=== PATIENT | female | born 1960 | race Caucasian/White ===

== ENCOUNTER 2016-12-30 20:51 | Observation (INO) ==
[2016-12-30] MEDS ORDERED: 0.9 % Sodium Chloride 1,000 ML IVC ONE (21:54)
[2016-12-30] MEDS ORDERED: Ondansetron 4 MG/2 ML VIAL IV ONE (21:55)
[2016-12-30 22:16] LABS: Basophils % 0.2 %; Eosinophils % 0.1 %; Immature Granulocytes % 0.7 % (0-4); Lymphocytes # 0.8 K/mcL (0.6-4.6); Lymphocytes % 8.9 %; Mean Corpuscular HGB Conc 33.3 g/dL (31.6-35.5); Mean Corpuscular Hemoglobin 31.1 pg (28.0-33.3); Mean Corpuscular Volume 93.3 fL (83.0-100.0); Mean Platelet Volume 10.4 fL (9.4-12.4); Monocytes # 0.8 K/mcL (0.0-1.3); Monocytes % 8.8 %; Neutrophils # 7.1 K/mcL (1.6-8.9); Platelet Count 178 K/mcL (140-400); Red Cell Distribution Width 13.2 % (11.5-14.5); Segmented Neutrophils % 81.3 %
[2016-12-30 22:18] LABS: Bilirubin,Urine Negative (Negative); Blood,Urine Negative (Negative); Clarity,Urine Clear (Clear); Color,Urine Dark Yellow (Yellow); Glucose,Urine (UA) Normal (Normal); Ketones,Urine Negative (Negative); Leukocyte Esterase,Urine Negative (Negative); Nitrite,Urine Negative (Negative); Protein,Urine 30 mg/dL (Neg-Trace); Specific Gravity,Urine > 1.030 (1.010-1.025); Urobilinogen,Urine Normal (Normal)
[2016-12-30 22:21] LABS: Bacteria,Urine Few per hpf (None-Few); Squamous Epithelial Cell,Urine Many per lpf (None-Few)
[2016-12-30 22:30] LABS: BUN/Creatinine Ratio 14 (6-26); Blood Urea Nitrogen 11 mg/dL (7-20); Calcium 8.9 mg/dL (8.6-10.8); Carbon Dioxide 27 mEq/L (19-29); Chloride 105 mEq/L (98-109); Glucose 136 mg/dL (70-99); Osmolality,Calculated 295 (280-300); Potassium 3.4 mEq/L (3.5-4.5); Sodium 142 mEq/L (136-145); eGFR For African Americans > 60 (> 60); eGFR For Non-African Americans > 60 (> 60)
[2016-12-30 22:35] LABS: RBC,Urine 0-3 per hpf (0-3)
[2016-12-30 22:36] LABS: Hyaline Casts,Urine Few per lpf (None-Few)
--- NOTE | 2016-12-30 23:47 | Emergency Department Note ---
Disposition Clinical Impression: Bradycardia Syncope Qualifiers: Syncope type: unspecified Qualified Code(s): R55 - Syncope and collapse Chest pain Qualifiers: Chest pain type: unspecified Qualified Code(s): R07.9 - Chest pain, unspecified Disposition: Admitted As Inpatient Condition: Good Time of Disposition: 05:07 Syncope HPI - General Chief Complaint: ED General Medical Stated Complaint: "panic attack"/LOC unknown cause Time Seen by Provider: 12/30/16 21:52 Source: patient Mode of arrival: EMS Limitations: no limitations Nursing Notes Reviewed: Yes Vital Signs Reviewed: Yes - History of Present Illness HPI Narrative: 56-year-old female presents after a syncopal episode at home. Patient states that she became significantly anxious, became nauseated, had chest pain and diaphoresis, she went to the bathroom to vomit when she syncopized. Son states that the patient was unconscious for less than a minute, did not have a postictal period. She was not incontinent of stool or urine. - Related Data Home Medications Medication Instructions Recorded Confirmed Doxylamine Succinate [Sleep Aid] 25 mg PO 12/31/16 Darrel's Wort 300 mg PO BID 12/31/16 12/31/16 Allergies Allergy/AdvReac Type Severity Reaction Status Date / Time No Known Allergies Allergy Verified 12/30/16 21:05 All systems ED: reviewed and negative except as stated. Constitutional: Reports: weakness. Denies: fever, chills Cardiovascular: Reports: chest pain, palpitations, syncope Respiratory: Reports: dyspnea. Denies: cough, wheezes, hemoptysis Gastrointestinal: Reports: nausea, vomiting. Denies: abdominal pain Genitourinary: Denies: urgency, dysuria Musculoskeletal: Denies: back pain, neck pain Integumentary: Denies: rash Neurological: Denies: headache, weakness, numbness, paresthesias Past Medical History - Past Medical History Attestation: Yes The following information was validated with the patient. Source: patient Medical history: Reports: hypertension Psychiatric history: Reports: anxiety, panic disorder - Social History Smoking Status: Current every day smoker Alcohol use: Reports: none Drug use: Reports: none Physical Exam General: Alert and in no acute distress Skin: Warm, dry, intact Head: Normocephalic and atraumatic Neck: Supple, trachea midline and no tenderness Cardiovascular: RRR, no murmur, normal perfusion Respiratory: CTAB, no wheezing, cough, or respiratory distress Musculoskeletal: Normal strength, no tenderness, swelling or deformity GI: Soft, nontender, nondistended. Bowel sounds present Neuro: A&O to person, place, time and situation. No focal deficits noted on exam Psychiatric: cooperative and appropriate mood and affect. - General Limitations: no limitations General appearance: alert Course Vital Signs Temperature 97.8 F 12/30/16 21:02 Pulse Rate 67 12/30/16 21:02 Respiratory Rate 16 12/30/16 21:02 Blood Pressure 145/77 12/30/16 21:02 O2 Sat by Pulse Oximetry 98 12/30/16 21:02 Temperature 98.0 F 12/31/16 02:10 Pulse Rate 75 12/31/16 02:10 Respiratory Rate 16 12/31/16 02:10 Blood Pressure 156/83 12/31/16 02:44 O2 Sat by Pulse Oximetry 95 12/31/16 02:10 Oxygen Delivery Oxygen Delivery Room Air Syncope - MDM Narrative Medical decision making narrative: Patient became bradycardic during my evaluation and had mild lightheadedness associated with it however the patient's blood pressure did not fall. Likely the patient had a vasovagal syncope however the patient has multiple risk factors for cardiac disease and with her associated chest pain with palpitations prior to the event I will admit the patient for further care and evaluation of the patient's syncope. - Medical Records Medical records reviewed: Yes I reviewed the patient's medical records. - Lab Data Lab results reviewed: Yes I reviewed the patient's lab results. Result diagrams: 12/30/16 22:00 12/30/16 22:00 Lab Results 12/30/16 12/30/16 12/30/16 Range/Units 22:00 22:00 22:00 WBC 8.7 (4.3-11.1) K/mcL RBC 4.50 (3.82-4.97) M/mcL Hgb 14.0 (11.5-15.4) g/dL Hct 42.0 (35.3-44.9) % MCV 93.3 (83.0-100.0) fL MCH 31.1 (28.0-33.3) pg MCHC 33.3 (31.6-35.5) g/dL RDW 13.2 (11.5-14.5) % Plt Count 178 (140-400) K/mcL MPV 10.4 (9.4-12.4) fL Immature Gran % 0.7 (0-4) % Seg Neutrophils % 81.3 % Lymphocytes % 8.9 % Monocytes % 8.8 % Eosinophils % 0.1 % Basophils % 0.2 % Neutrophils # 7.1 (1.6-8.9) K/mcL Lymphocytes # 0.8 (0.6-4.6) K/mcL Monocytes # 0.8 (0.0-1.3) K/mcL Eosinophils # 0.0 (0.0-0.6) K/mcL Basophils # 0.0 (0.0-0.2) K/mcL Sodium 142 (136-145) mEq/L Potassium 3.4 L (3.5-4.5) mEq/L Chloride 105 (98-109) mEq/L Carbon Dioxide 27 (19-29) mEq/L BUN 11 (7-20) mg/dL Creatinine 0.78 (0.57-1.11) mg/dL Est GFR ( Amer) > 60 (> 60) Est GFR (Non-Af Amer) > 60 (> 60) BUN/Creatinine Ratio 14 (6-26) Glucose 136 H (70-99) mg/dL POC Glucose (58-89) Calculated Osmolality 295 (280-300) Calcium 8.9 (8.6-10.8) mg/dL Troponin I (0-0.03) ng/mL Urine Color Dark Yellow (Yellow) Urine Clarity Clear (Clear) Urine pH 5.0 (5.0-8.0) pH Units Ur Specific [place] > 1.030 H (1.010-1.025) Urine Protein 30 H (Neg-Trace) mg/dL Urine Glucose (UA) Normal (Normal) mg/dL Urine Ketones Negative (Negative) mg/dL Urine Blood Negative (Negative) Urine Nitrite Negative (Negative) Urine Bilirubin Negative (Negative) Urine Urobilinogen Normal (Normal) mg/dL Ur Leukocyte Esterase Negative (Negative) Urine Microscopic RBC 0-3 (0-3) per hpf Urine Microscopic WBC 3-5 H (0-3) per hpf Ur Squamous Epith Cells Many H (None-Few) per lpf Urine Bacteria Few (None-Few) per hpf Hyaline Casts Few (None-Few) per lpf Urine Yeast Test Not Performed 12/30/16 12/30/16 Range/Units 22:00 22:16 WBC (4.3-11.1) K/mcL RBC (3.82-4.97) M/mcL Hgb (11.5-15.4) g/dL Hct (35.3-44.9) % MCV (83.0-100.0) fL MCH (28.0-33.3) pg MCHC (31.6-35.5) g/dL RDW (11.5-14.5) % Plt Count (140-400) K/mcL MPV (9.4-12.4) fL Immature Gran % (0-4) % Seg Neutrophils % % Lymphocytes % % Monocytes % % Eosinophils % % Basophils % % Neutrophils # (1.6-8.9) K/mcL Lymphocytes # (0.6-4.6) K/mcL Monocytes # (0.0-1.3) K/mcL Eosinophils # (0.0-0.6) K/mcL Basophils # (0.0-0.2) K/mcL Sodium (136-145) mEq/L Potassium (3.5-4.5) mEq/L Chloride (98-109) mEq/L Carbon Dioxide (19-29) mEq/L BUN (7-20) mg/dL Creatinine (0.57-1.11) mg/dL Est GFR ( Amer) (> 60) Est GFR (Non-Af Amer) (> 60) BUN/Creatinine Ratio (6-26) Glucose (70-99) mg/dL POC Glucose 130 H (58-89) Calculated Osmolality (280-300) Calcium (8.6-10.8) mg/dL Troponin I 0.00 (0-0.03) ng/mL Urine Color (Yellow) Urine Clarity (Clear) Urine pH (5.0-8.0) pH Units Ur Specific [place] (1.010-1.025) Urine Protein (Neg-Trace) mg/dL Urine Glucose (UA) (Normal) mg/dL Urine Ketones (Negative) mg/dL Urine Blood (Negative) Urine Nitrite (Negative) Urine Bilirubin (Negative) Urine Urobilinogen (Normal) mg/dL Ur Leukocyte Esterase (Negative) Urine Microscopic RBC (0-3) per hpf Urine Microscopic WBC (0-3) per hpf Ur Squamous Epith Cells (None-Few) per lpf Urine Bacteria (None-Few) per hpf Hyaline Casts (None-Few) per lpf Urine Yeast - Radiology Data Radiology results reviewed: Yes I reviewed the patient's radiology results. - EKG Data EKG attestation: Yes I reviewed and interpreted this EKG. EKG results narrative: ECG - interpreted by ED physician. Rate 64, normal sinus rhythm, no STEMI, GA, QT intervals, and QRS within normal limits
[2016-12-31] MEDS ORDERED: Naloxone 0.4 MG/ML INJ IVP PRN (01:31)
[2016-12-31] MEDS ORDERED: Ondansetron 4 MG/2 ML VIAL IVP PRN (01:31)
[2016-12-31] MEDS ORDERED: Ibuprofen 400 MG TABLET PO PRN (01:31)
[2016-12-31] MEDS ORDERED: Acetaminophen 325 MG TABLET PO PRN ×2 (01:31→02:40)
--- NOTE | 2016-12-31 02:36 | Internal Med History&Physical ---
<Diana Nieto Sumeet - Last Filed: 12/31/16 05:56> Date of Encounter: 12/31/16 Time of Encounter: 12:40 Assessment and Plan (1) Syncope Current visit: Yes Status: Acute Patient with episode of syncope and collapse. This is unlikely due to vasovagal symptoms due to loss of consciousness. Patient had an episode of bradycardia with HR in 30s while being seen by ED physician, Dr. Benito DO. Patient was assymptomatic at that time. Patient previously been worked-up for cardiac problem and wore a 7-day Holter. Plan: Orthostatic blood pressures do not suggest orthostatic hypotension EKG NSR Electrolytes, pending TSH, pending Echo, pending Continuous cardiac monitoring Records request from [facility] and Dr. Grace's office in [place], pending Consider ordering EEG and image head once records have been obtained Qualifiers: Syncope type: unspecified Qualified Code(s): R55 - Syncope and collapse (2) Bradycardia Current visit: Yes Status: Acute Patient with run of asymptomatic bradycardia witnessed by ED physician Plan as above (3) Hypertension, uncontrolled Current visit: Yes Status: Acute Start lisinopril 10mg q day (4) Proteinuria Current visit: Yes Status: Acute UA with protein of 30mg/dL likely due to uncontrolled HTN. Patient stated that she had previously been on anti-HTN medication, but stopped less than a year ago. Plan: Lisinopril 10mg q day for renal protection Patient will need outpatient follow-up for management of HTN Qualifiers: Proteinuria type: unspecified Qualified Code(s): R80.9 - Proteinuria, unspecified (5) Hypokalemia Current visit: Yes Status: Acute Plan: Replaced 20mEq K+ Will trend renal function (6) Hyperglycemia Current visit: Yes Status: Acute Patient with family history of DM2. Blood glucose 136 upon presentation to hospital Plan: Hgb A1c Internal Medicine - H&P: HPI Chief complaint: syncope and collapse Admitted From: Emergency Dept Plans for Post Hospital Care: Home History of present illness: Ms. Guardado is a 56 year old female who presents with syncope that began around dinner on 12/30/16. She presents to ED with her son. Patient states that while eating dinner she became nauseated, felt anxious, flushed, diaphoretic, and went to the restroom to vomit. She states that she began dry-heaving over the toilet. She felt the urge to defecate, and attempted to move from sitting on her knees to sitting on the toilet. The son states that before she moved from sitting on her knees, he heard her gently head hit the toilet bowl. He picked her up and her head fell to one side. She was mumbling and forming unintelligible words. Her eyes "rolled back in her head" and she began snoring very loudly. She was unconscious for 2 minutes. She was lethargic upon wakening and did not have return of full concentration for another 2 minutes. She noticed, upon wakening that she had had incontinence of her bowels, but states this was due to the fact that she cold not make it to sit on the toilet in time. Admits history of previous such episodes. The last episode was 2 years ago. She states that she has had much stress lately due to not having a home, family issues, and taking care of her aging parents. Patient states that she has been treating a "head cold" with Nyquil every 4 hours on 12/30/16. She also admits to regularly taking generic "sleep aid" medication and [place]'s wart BID. Past Med Surg Social Fam HX - Past Medical History Medical history: hypertension Psychiatric history: anxiety, panic disorder - Past Surgical History Surgical History: orthopedic, other (carpal tunnel release), sinus surgery - Social History Smoking Status: Current every day smoker Alcohol use: none Drug use: none - Family History Mother Living Status: Still Living Hx Family Cardiac Disorders: Yes Hx Family Respiratory Disorders: No Hx Family Cancer: No Hx Family GI Disorders: No Hx Family Genitourinary Disorders: No Hx Family Endocrine Disorder: Yes Hx Family Musculoskeletal Disorders: No Hx Family Neuromuscular Disorders: No Hx Family Neurologic Disorders: No Hx Family HEENT Disorders: No Hx Family Autoimmune Disorders: No Hx Family Reproductive Disorders: No Hx Family Psychosocial Disorders: No Hx Family Medical Disorders: No Internal Medicine - H&P: Meds Doxylamine Succinate [Sleep Aid] 25 mg PO 12/31/16 [History] Darrel's Wort 300 mg PO BID 12/31/16 [History] Allergies No Known Allergies Allergy (Verified 12/30/16 21:05) All Systems PM: A 10-system review of systems was performed and is negative for pertinent findings except as documented above in the HPI. - Constitutional Constitutional: weight loss, other (increased appetite) - EENT Nose, mouth and throat: nasal congestion, nasal discharge - Cardiovascular Cardiovascular ROS IM: diaphoresis, dyspnea on exertion, irregular heart rhythm (racing heart), lightheadedness, no chest pain, no edema, no palpitations - Respiratory Respiratory: cough, hemoptysis (streaks ), dyspnea on exertion - Gastrointestinal Gastrointestinal: diarrhea, nausea, vomiting, no abdominal pain - Genitourinary Genitourinary: other (malodorous urine), no dysuria, no hematuria - Psychiatric Psychiatric: anxiety, panic attacks - Endocrine Endocrine IM: flushing - Constitutional Vitals: Temp Pulse Resp BP Pulse Ox 98.0 F 75 16 157/84 95 12/31/16 02:10 12/31/16 02:10 12/31/16 02:10 12/31/16 02:10 12/31/16 02:10 Orthostatics: Supine: 156/83, HR 65 Sittin/89, HR 65 Standing 177/101, HR 65 Sitting with valsalva: 180/108, HR 65 General appearance: Present: cooperative, A&O X 3, pleasant, answers questions appropriately - Head Head exam: Present: atraumatic, normal inspection, normocephalic - Eye Eye exam: Present: EOMI - ENT ENT exam: Present: mucous membranes moist - Respiratory Respiratory exam: Present: CTAB. Absent: accessory muscle use, respiratory distress, rhonchi, wheezes - Cardiovascular Cardiovascular exam: Present: RRR, +S1, +S2 - GI/Abdominal GI/Abdominal exam: Present: normal bowel sounds. Absent: hepatomegaly, splenomegaly, tenderness - Extremities Exam Extremities exam: Present: normal inspection, warm. Absent: pedal edema Additional comments: fingernails with deep central pitting due to neurotic picking - Neurological Exam Neurological exam: Present: CN II-XII intact - Psychiatric Psychiatric exam: Present: normal affect, normal mood - Skin Skin exam: Present: dry, warm Internal Med - H&P Results - Labs CBC & Chem 7: 12/30/16 22:00 12/30/16 22:00 Labs: Laboratory Results - last 48 hr 12/30/16 12/30/16 12/30/16 22:00 22:00 22:00 WBC 8.7 RBC 4.50 Hgb 14.0 Hct 42.0 MCV 93.3 MCH 31.1 MCHC 33.3 RDW 13.2 Plt Count 178 MPV 10.4 Immature Gran % 0.7 Seg Neutrophils % 81.3 Lymphocytes % 8.9 Monocytes % 8.8 Eosinophils % 0.1 Basophils % 0.2 Neutrophils # 7.1 Lymphocytes # 0.8 Monocytes # 0.8 Eosinophils # 0.0 Basophils # 0.0 Sodium 142 Potassium 3.4 L Chloride 105 Carbon Dioxide 27 BUN 11 Creatinine 0.78 Est GFR ( Amer) > 60 Est GFR (Non-Af Amer) > 60 BUN/Creatinine Ratio 14 Glucose 136 H POC Glucose Calculated Osmolality 295 Calcium 8.9 Troponin I Urine Color Dark Yellow Urine Clarity Clear Urine pH 5.0 Ur Specific [place] > 1.030 H Urine Protein 30 H Urine Glucose (UA) Normal Urine Ketones Negative Urine Blood Negative Urine Nitrite Negative Urine Bilirubin Negative Urine Urobilinogen Normal Ur Leukocyte Esterase Negative Urine Microscopic RBC 0-3 Urine Microscopic WBC 3-5 H Ur Squamous Epith Cells Many H Urine Bacteria Few Hyaline Casts Few Urine Yeast Test Not Performed 12/30/16 12/30/16 22:00 22:16 WBC RBC Hgb Hct MCV MCH MCHC RDW Plt Count MPV Immature Gran % Seg Neutrophils % Lymphocytes % Monocytes % Eosinophils % Basophils % Neutrophils # Lymphocytes # Monocytes # Eosinophils # Basophils # Sodium Potassium Chloride Carbon Dioxide BUN Creatinine Est GFR ( Amer) Est GFR (Non-Af Amer) BUN/Creatinine Ratio Glucose POC Glucose 130 H Calculated Osmolality Calcium Troponin I 0.00 Urine Color Urine Clarity Urine pH Ur Specific [place] Urine Protein Urine Glucose (UA) Urine Ketones Urine Blood Urine Nitrite Urine Bilirubin Urine Urobilinogen Ur Leukocyte Esterase Urine Microscopic RBC Urine Microscopic WBC Ur Squamous Epith Cells Urine Bacteria Hyaline Casts Urine Yeast - Impressions Chest X-Ray 12/30/16 21:54 IMPRESSION: Negative portable chest. D/ / Juan Del Rosario MD / Juan Del Rosario MD Interpreting Provider: Juan Del Rosario MD <Shefali Freeman R - Last Filed: 12/31/16 08:16> Date of Encounter: 12/31/16 Time of Encounter: 00:40 Internal Medicine - H&P: HPI History of present illness: Ms. Guardado is a 56 year old female All Systems PM: A 10-system review of systems was performed and is negative for pertinent findings except as documented above in the HPI. - Constitutional Vitals: Temp Pulse Resp BP Pulse Ox 99.5 F 89 15 160/79 94 L 12/31/16 07:27 12/31/16 07:27 12/31/16 07:27 12/31/16 07:27 12/31/16 07:27 Internal Med - H&P Results - Labs CBC & Chem 7: 12/30/16 22:00 12/30/16 22:00 Labs: Cardiac Enzymes 12/31/16 Range/Units 04:08 Troponin I 0.01 (0-0.03) ng/mL - Attending Attestation I have personally evaluated the pt and discussed the details with the Mental Health Technician/ Resident. Agree with the plan. Details as below. 56 Y/F presented with syncope. She apparently was not at toilet, when she felt nauseated / dry heaving. When she bent forward to throw up, she apparently passed out. She feels that she had a panic attack, felt similar to her prior panic attacks. She apparently lost consciousness for about 2 minutes and was confused afterwards. She denies any fecal incontinence. She denies chest pain , headache. She apparently had a holter monitor in the past and was normal. O/E: possible right caotid bruit. No gross neuro deficits. EKG - non acute. CXR - normal. Troponin is negative. A/P: vasovagal versus cardiogenic syncope: orthostatics negative. Obtain old medical records. If there was no neurological w/u in the past, consider CT head. Will obtain carotid doppler, echocardiogram.
[2016-12-31] MEDS ORDERED: 0.9 % Sodium Chloride 1,000 ML IVC SCH (02:45)
[2016-12-31 04:58] LABS: Chol/HDL Ratio 2.8 (0-4.9); Magnesium 1.5 mg/dL (1.6-2.6); Phosphorous 3.5 mg/dL (2.3-4.7)
[2016-12-31] MEDS ORDERED: Magnesium Oxide 400 MG TABLET PO SCH (09:00)
[2016-12-31 11:58] VITALS: BP 170/89
--- NOTE | 2016-12-31 12:01 | ECHO - Doppler Report ---
Echocardiogram Name: Kellen Guardado Date of Study: 12/31/2016 Date: 1960 Ht: 66.0 in Medical Record#: [id number] Age: 56 Wt: 110.0 lb Gender: Female BSA: 1.55 Order #: [id number] Location: [facility] Room #: [id number] Reading Physician: Vern Matta DO, WAQAR, MARILYN ENRIQUEZ Measurer Machine: Fabiano Burks RN Ordering Physician: Ananth Freeman MD Primary Physician: None Indications: Syncope Impressions: LVEF 65%. Normal LV chamber size, wall thickness and function. Mild left ventricular diastolic dysfunction. Normal right ventricular structure and function. Mild pulmonary hypertension. Estimated RVSP is 41 mmHg. No significant valvular dysfunction. Left Ventricular Wall Motion: Rest Echo Findings All wall segments showed normal motion. Findings: Study Quality * Technically adequate exam. ECG Findings * Normal sinus rhythm. Left Ventricle * LVEF 65%. * Normal LV chamber size, wall thickness and function. * Mild left ventricular diastolic dysfunction. Right Ventricle * Normal right ventricular structure and function. Left Atrium * Mildly dilated left atrium. Right Atrium * Normal right atrial size. Interatrial Septum * No evidence of PFO by color Doppler. Aortic Valve * Trileaflet aortic valve with normal function. * No aortic regurgitation. * No aortic stenosis. Mitral Valve * Normal mitral valve structure and function. * No mitral stenosis. * Trace mitral regurgitation. Tricuspid Valve * Normal tricuspid valve structure and function. * Trace tricuspid regurgitation. * Mild pulmonary hypertension. * Estimated RVSP is 41 mmHg. * Estimated RA pressure is 5 mmHg. Pulmonic Valve * Pulmonic valve not well visualized. * No pulmonic regurgitation. Aorta * Normally sized aortic root. Pericardium * The pericardium appears normal. IVC * Normal IVC dimensions and inspiratory collapse. Pulmonary Artery * Normal visualized portions of the main pulmonary artery. History Hypertension History of Smoking Years 40 Packs 1 Family History of CAD Measurements: BP: 193/ 104 2D Normal Values RVIDd: 3.00 cm <2.7 cm IVSd: .90 cm 0.6 - 1.0 cm LVIDd: 4.60 cm 3.7 - 5.6 cm LVPWd: .90 cm 0.6 - 1.1 cm LVIDs: 2.50 cm 1.5 - 3.6 cm LA: 3.00 cm 2.0 - 4.0cm %FS: 45.70 cm >25 % LVOT Diam: 2.00 cm LA volume: 59 Mitral Valve Peak E:.86 m/sec Peak A:.81 m/sec E/A Ratio:1.1 Peak E' Lat [place]:11 cm/s Peak E' Med [place]:14.4 cm/s E/E' Lat Ratio:7.7 E/E' Med Ratio:5.9 Tricuspid Valve TV Regurg Peak Grad: 36.00mmHg TV Regurg Peak [place]: 3.01m/sec Updated by Vern Matta DO, FACLori, MINA, MARILYN on 12/31/2016 11:56:20 AM electronically signed on 12/31/2016 11:56:51 AM with status of Final Wall Motion Morales: 1=Normal, 2=Hypokinesis, 3=Akinesis, 4=Dyskinesis, 5=Aneurysmal, 6=Hyperkinetic, X=Not Visualized (Blank)=Missing
--- NOTE | 2016-12-31 14:24 | Discharge Summary ---
Date of Encounter: 12/31/16 Time of Encounter: 13:30 - Discharge Diagnosis (1) Hypertension, uncontrolled Priority: Secondary Status: Chronic Comments: Patient stating she quit her job and moved here in town approximately 7 months ago. At that time, she felt because she was no longer in a stressful job that she did not need to take her blood pressure medications. She stated prior to stopping the medications, her blood pressure was difficult to control. While here, she was started on lisinopril 10 mg daily and she remained hypertensive. We will discharge her on 20 mg of lisinopril daily and have her check her blood pressure daily at home, follow-up closely outpatient. (2) Syncope Priority: Primary Status: Acute Comments: Chest x-ray negative. Echocardiogram unremarkable with ejection fraction of 65 % and mild diastolic dysfunction and mild pulmonary hypertension. Euvolemic on examination to this admission. Head CT negative. Carotid ultrasound with mild to moderate stenosis on the left side, follow-up outpatient with vascular. Story and symptoms consistent with vasovagal syncope. Uncontrolled hypertension addressed. Qualifiers: Syncope type: unspecified Qualified Code(s): R55 - Syncope and collapse (3) Carotid stenosis Priority: Primary Status: Acute Comments: Right side nonstenotic plaque, left side mild to moderate, follow-up outpatient with vascular surgery. (4) Bradycardia Priority: Primary Status: Resolved Comments: Telemetry reviewed, no bradycardia while admitted. Follow-up outpatient. (5) Hyperglycemia Priority: Primary Status: Ruled-out Comments: A1c 5.0, no diagnosis of diabetes. Likely stress related (6) Hypokalemia Priority: Primary Status: Acute Comments: mild; followup outpatient. Mg also mildly low. Repleted with supplements while admitted- likely resolved. (7) Proteinuria Priority: Primary Status: Acute Comments: Small amount, likely secondary to uncontrolled hypertension. Antihypertensive medications were reinitiated. Patient came off her medications approximately 7 months ago. (8) Tobacco abuse Priority: Secondary Status: Chronic Comments: Declined counseling - Discharge Medications Prescriptions: Atorvastatin [Lipitor] 10 mg PO HS #30 tablet Lisinopril [Zestril] 20 mg PO DAILY #30 tablet Home Medications: Atorvastatin [Lipitor] 10 mg PO HS #30 tablet 12/31/16 [Rx] Cetirizine HCl [Zyrtec] 10 mg PO DAILY 12/31/16 [History] Doxylamine Succinate [Sleep Aid] 25 mg PO HS 12/31/16 [History] Lisinopril [Zestril] 20 mg PO DAILY #30 tablet 12/31/16 [Rx] Multivitamin [One Daily Essential] 1 tab PO DAILY 12/31/16 [History] [place]'s Wort 300 mg PO BID 12/31/16 [History] Allergies/Adverse Reactions: Allergies No Known Allergies Allergy (Verified 12/30/16 21:05) Procedures/tests Complete & Pending: Procedures Performed prior 72 hours Category Date Time Status CT head/brain wo con [CT] Stat Cat Scan 12/31/16 07:47 Completed EV carotid duplex imaging BI Routine Y 12/31/16 07:57 Completed EV echocardiogram Routine Y 12/31/16 02:44 Completed Date of admission: 12/31/16 00:49 Primary care physician: PCP LIANG Discharging clinician: Jonelle Serrano Anticipated date of discharge: 12/31/16 - Patient Status Disposition: Home, Self-Care Condition: Good Functional capacity at discharge: independent ambulation Overall status at discharge: patient is back to baseline - Discharge Instructions Follow Up With: NO,PCP [Primary Care Provider] - Vascular Surgery [facility] [Provider Group] [facility] [Other] Additional Instructions: Follow-up with primary care provider within one to 2 weeks, check blood pressure daily. Follow-up with vascular surgery in 2-3 weeks - Diet and Activity Activity: increase activity as tolerated Diet: low salt diet Hospital course: Ms. Guardado is a 56 year old female with past medical history of hypertension, anxiety, panic disorder, tobacco abuse. Patient presented to the emergency room chief complaint syncopal episode. Patient stating what she was eating dinner she became nauseated, felt anxious, flushed, diaphoretic, and went to the restroom to vomit. She states that she began to dry heave over the toilet when she felt the urge to defecate and when she attempted to move from sitting on her knees to sitting on the toilet, son states that he heard her gently hit her head on the toilet bowl at that time. He picked her up and her head fell on one side and she was mumbling but her speech was unintelligible. States Her Eyes Rolled Back in Her Head and She Began to Snore Very Loudly and That She Was Unconscious for 2 Minutes. Upon Awakening, Son Reports That She Was Lethargic and Did Not Return to Full Concentration for Another 2 Minutes. Patient Had Been Incontinent of Bowels during This Episode. Patient Stating She Had an Episode Similar to This Approximately 2 Years Ago. Patient Endorses Increased Stress at Home, Family Issues. Patient Also Stating That She Has Been Treating a Head Cold with NyQuil Every 4 Hours on the Day of This Episode. Workup in the emergency department unremarkable. Chest x-ray negative. Head CT negative. Patient was admitted to the hospitalist service for further evaluation and management. Very mild hypokalemia and hypomagnesemia noted the patient was given supplements. Patient tolerated a regular diet during this admission. She remained alert and oriented 3 throughout this admission and she remained asymptomatic. Uncontrolled hypertension noted. Patient stating she took herself off her blood pressure medications approximately 7 months ago when she stopped her stressful job and moved back here. She states that her blood pressure is always been difficult to control. She was started back on lisinopril during this admission and instructed to check her blood pressure daily at home. Echocardiogram unremarkable with ejection fraction 65%, mild diastolic dysfunction, mild pulmonary hypertension. Patient euvolemic on examination during this admission. Urinalysis negative. Carotid ultrasound revealing nonstenotic plaque on the right and mild to moderate plaque on the left, recommend follow-up outpatient with vascular as well as initiation of low- dose statin. Lipid panel unremarkable. She is discharged home in stable condition with close outpatient follow-up recommended. She does not currently have a primary care provider and she was instructed to follow-up with residency clinic as well as vascular. ITS Impressions Chest X-Ray 12/30/16 21:54 IMPRESSION: Negative portable chest. D/ / Juan Del Rosario MD / Juan Del Rosario MD Interpreting Provider: Juan Del Rosario MD Head CT 12/31/16 07:47 IMPRESSION: No acute intracranial abnormality. D/ / Torsten Carmichael MD / Torsten Carmichael MD Interpreting Provider: Torsten Carmichael MD Echocardiogram impressions: LVEF 65%. Normal left and sugar size, wall thickness and function. Mild left ventricular diastolic dysfunction. Normal right ventricular structure and function. Mild pulmonary hypertension. Estimated RVSP is 41 mmHg. No significant valvular dysfunction. 12/31/16 11:42 - Vascular Preliminary by Fabiano Burks [facility] Num: [id number] : 1960 Patient Age: 56 Preliminary report for bilateral carotid duplex, right side non-stenotic plaque and left side MID ICA 40-59% and Distal ICA 60-79% stenosis. Initialized on 12/31/16 11:42 - END OF NOTE - Time Spent with Patient Total time spent providing and/or coordinating discharge services: - Constitutional Vitals: Temp Pulse Resp BP Pulse Ox 99.8 F H 89 16 170/89 95 12/31/16 11:58 12/31/16 11:58 12/31/16 11:58 12/31/16 11:58 12/31/16 11:58 General appearance: Present: cooperative, A&O X 3, pleasant, no acute distress, underweight, answers questions appropriately - Head Head exam: Present: atraumatic, normocephalic - Eye Eye exam: Present: PERRL, conjuntiva pink, sclera anicteric Pupils: Present: PERRL - Neck Neck exam general surgery: Present: supple, trachea midline. Absent: lymphadenopathy - Respiratory Respiratory exam: Present: decreased breath sounds. Absent: accessory muscle use, rales, respiratory distress, rhonchi, wheezes - Cardiovascular Cardiovascular exam: Present: RRR, +S1, +S2. Absent: diastolic murmur, gallop, rubs, systolic murmur - GI/Abdominal GI/Abdominal exam: Present: normal bowel sounds, soft, no peritoneal signs. Absent: distended, tenderness - Extremities Exam Extremities exam: Present: warm, radial pulses palpable and symetrical. Absent : calf tenderness, cyanotic, pedal edema - Neurological Exam Neurological exam: Present: alert, CN II-XII intact, normal gait, oriented X3, no focal deficits, strengths equal and symetr throughout. Absent: pronater drift, facial droop, speech deficit - Skin Skin exam: Present: dry, intact, normal color, warm - VTE Reasons for not Prescribing Prophylaxis: Treatment not Indicated - Low risk for VTE
--- NOTE | 2016-12-31 14:55 | Electrocardiograph Report ---
[address] [address] Test Date: 2016-12-30 Pat Name: Kellen Guardado Department: 103 Room: [facility] Gender: F Machine Set Up Technician: : 1960 Requested By: Les Oliver Order Number: [id number] Reading MD: Vivian Mcgovern Measurements Intervals [place] Rate: 64 P: 45 NV: 150 QRS: 60 QRSD: 86 T: 56 QT: 395 QTc: 404 Interpretive Statements SINUS RHYTHM Electronically Signed On 12-31-2016 14:53:59 EST by Vivian Mcgovern
--- NOTE | 2017-01-01 19:58 | Carotid Imaging Report ---
Carotid Duplex Patient Name:Kellen Guardado Order Number:[id number] Procedure Date:12/31/2016 Date:1960ge:56 yrs Gender:Female Lt BP:178 / 101 mmHg Rt.BP:193 / 104 mmHgHeart Rate: Location:[facility] Room #: 3B33 Satellite Dish Installer:Fabiano Burks RN Referring MD:Ananth Freeman MD digital sales executive:None Reading MD:Abisai Washburn MD , FACS Primary Indications:Syncope Risk Factors Yes/No Hypertension Yes Diabetes No Hypercholesterolemia No Smoking Current Yes Hx of TIA No Hx of CVA No Anticoagulants No Hx of CAD/PTCA No Previous Vascular Surgery No Impressions: Findings: Right carotid system has nonstenotic plaque. Findings: Left distal ICA has a severe, 60-79% stenosis. Recommendations: Risk Factor Modification and Follow up exam 6 months. Test completed on 12/31/2016 at 11:20:00 am. Findings Carotid Duplex: Right: The right proximal common carotid artery has a PSV of 167 cm/s and a EDV of 31 cm/s. The right mid common carotid artery has a PSV of 105 cm/s and a EDV of 19 cm/s. There is nonstenotic plaque in the right distal common carotid artery with a PSV of 101 cm/s and a EDV of 32 cm/s. There is smooth homogeneous plaque. There is nonstenotic plaque in the right bifurcation with a PSV of 73 cm/s and a EDV of 28 cm/s. There is smooth homogeneous plaque. There is nonstenotic plaque in the right proximal internal carotid artery with a PSV of 96 cm/s and a EDV of 24 cm/s. There is smooth homogeneous plaque. The right mid internal carotid artery has a PSV of 82 cm/s and a EDV of 32 cm/s. The right distal internal carotid artery has a PSV of 72 cm/s and a EDV of 30 cm/s. The right eca has a PSV of 210 cm/s and a EDV of 42 cm/s. The right vertebral artery has a PSV of 64 cm/s and a EDV of 17 cm/s. Left: The left proximal common carotid artery has a PSV of 153 cm/s and a EDV of 40 cm/s. The left mid common carotid artery has a PSV of 121 cm/s and a EDV of 42 cm/s. There is nonstenotic plaque in the left distal common carotid artery with a PSV of 106 cm/s and a EDV of 31 cm/s. There is smooth homogeneous plaque. There is nonstenotic plaque in the left bifurcation with a PSV of 120 cm/s and a EDV of 31 cm/s. There is smooth heterogeneous plaque. There is nonstenotic plaque in the left proximal internal carotid artery with a PSV of 105 cm/s and a EDV of 35 cm/s. There is smooth homogeneous plaque. There is 40-59% stenosis in the left mid internal carotid artery with a PSV of 130 cm/s and a EDV of 46 cm/s. There is 60-79% stenosis in the left distal internal carotid artery with a PSV of 163 cm/s and a EDV of 62 cm/s. The left eca has a PSV of 171 cm/s and a EDV of 43 cm/s. The left vertebral artery has a PSV of 55 cm/s and a EDV of 18 cm/s. Prior Study: No prior study available for comparison. Carotid Results Right PSV EDV Assessment Proximal CCA 167 31 Normal Mid CCA 105 19 Normal Distal CCA 101 32 Non Stenotic Plaque Bifurcation 73 28 Non Stenotic Plaque Proximal ICA 96 24 Non Stenotic Plaque Mid ICA 82 32 Normal Distal ICA 72 30 Normal ECA 210 42 Normal Vertebral Artery 64 17 Normal Left PSV EDV Assessment Proximal CCA 153 40 Normal Mid CCA 121 42 Normal Distal CCA 106 31 Non Stenotic Plaque Bifurcation 120 31 Non Stenotic Plaque Proximal ICA 105 35 Non Stenotic Plaque Mid ICA 130 46 40-59% stenosis Distal ICA 163 62 60-79% stenosis ECA 171 43 Normal Vertebral Artery 55 18 Normal Ratio's Right ICA/CCA Ratio: 0.91 ICA/CCA Values: 96/105 Left ICA/CCA Ratio: 1.35 ICA/CCA Values: 163/121 Updated by Abisai Washburn MD, FACS on 01/01/2017 7:52:04 PM Abisai Washburn MD electronically signed on 01/01/2017 7:52:32 PM with status of Final
== END 2016-12-31 15:24 | disposition home or self-care (01) ==
LOC: EMEROO 20:51 → 3BNU 20:51
PROVIDERS: ADMIT Hospitalist; ATTEND Nurse Practitioner Family